=== PATIENT | male | born 1970 | race Two or more races ===

== ENCOUNTER 2019-01-28 14:41 | Inpatient (IN) | payer OTHER ==
[2019-01-28 15:06] VITALS: BMI 21.7
[2019-01-28] MEDS ORDERED: IBUPROFEN 400 MG TABLET (FP) PO PRN (16:47)
[2019-01-28] MEDS ORDERED: MENTHOL/PHENOL 1 EACH UD MM PRN (16:47)
[2019-01-28] MEDS ORDERED: hydrOXYzine PAMOATE 25 MG CAPSULE (FP) PO PRN (16:47)
[2019-01-28] MEDS ORDERED: LOPERAMIDE HCL 2 MG CAPSULE PO PRN (16:47)
[2019-01-28] MEDS ORDERED: ACETAMINOPHEN 325 MG TABLET (FP) PO PRN (16:47)
[2019-01-28] MEDS ORDERED: guaiFENesin 200 MG/10 ML 10 ML UNIT-DOSE CUPS PO PRN (16:47)
[2019-01-28] MEDS ORDERED: P-EPHED 60MG/TRIPROLIDI 2.5MG TABLET PO PRN (16:47)
[2019-01-28] MEDS ORDERED: MAGNESIUM HYDROX 2400MG/30ML ORAL SUSPENSION 30 ML CUP PO PRN (16:47)
[2019-01-28] MEDS ORDERED: MAG HYDROX/AL HYDROX/SIMETH 30 ML UNIT-DOSE CUP PO PRN (16:47)
[2019-01-28] MEDS ORDERED: MAGNESIUM CITRATE 300 ML BOTTLE PO PRN (16:47)
--- NOTE | 2019-01-28 16:47 | HP ---
CIWA Score - Admission Criteria OASAS Guidelines: Admission for Medically Managed Detox: Requires at least one of the followin. CIWA greater than 12 2. Seizures within the past 24 hours 3. Delirium tremens within the past 24 hours 4. Hallucinations within the past 24 hours 5. Acute intervention needed for co occurring medical disorder 6. Acute intervention needed for co occurring psychiatric disorder 7. Severe withdrawal that cannot be handled at a lower level of care (continued vomiting, continued diarrhea, abnormal vital signs) requiring intravenous medication and/or fluids 8. Admission ROS S - HPI Chief Complaint: cocaine rehab Allergies/Adverse Reactions: Allergies Allergy/AdvReac Type Severity Reaction Status Date / Time No Known Allergies Allergy Verified 01/28/19 14:58 History of Present Illness: Patient is a 48 yo male with hx of cocaine and opioid dependence is here seeking inpatient rehabilitation. Patient linked to [facility] on methadone 25 mg last medicated today, dose pending verification, patient reports continues to use opioids intravenous. PMHX: denies. Psych: Denies . Denies SI/HI Exam Limitations: No Limitations - Ebola screening Have you traveled outside of the country in the last 21 days: No Have you had contact with anyone from an Ebola affected area: No - Review of Systems Constitutional: Loss of Appetite, Changes in sleep, Unintentional Wgt. Loss EENT: reports: No Symptoms Reported Respiratory: reports: No Symptoms reported Cardiac: reports: No Symptoms Reported GI: reports: Poor Appetite, Poor Fluid Intake, Indigestion : reports: No Symptoms Reported Musculoskeletal: reports: No Symptoms Reported Integumentary: reports: No Symptoms Reported Neuro: reports: Weakness Endocrine: reports: No Symptoms Reported Hematology: reports: No Symptoms Reported Psychiatric: reports: Orientated x3, Anxious Other Systems: Reviewed and Negative Patient History - Patient Medical History Hx Anemia: No Hx Asthma: No Hx Chronic Obstructive Pulmonary Disease (COPD): No Hx Cancer: No Hx Cardiac Disorders: No Hx Congestive Heart Failure: No Hx Hypertension: No Hx Hypercholesterolemia: No Hx Pacemaker: No HX Cerebrovascular Accident: No Hx Seizures: No Hx Dementia: No Hx Diabetes: No Hx Gastrointestinal Disorders: No Hx Liver Disease: No Hx Genitourinary Disorders: No Hx Sexually Transmitted Disorders: No Hx Renal Disease (ESRD): No Hx Thyroid Disease: No Hx Human Immunodeficiency Virus (HIV): No Hx Hepatitis C: No Hx Depression: No Hx Suicide Attempt: No Hx Bipolar Disorder: No Hx Schizophrenia: No - Patient Surgical History Past Surgical History: No - PPD History Previous Implant?: No Documented Results: Negative w/o proof PPD to be Administered?: No - Smoking Cessation Smoking history: Current every day smoker Have you smoked in the past 12 months: Yes Aproximately how many cigarettes per day: 6 Hx Chewing Tobacco Use: No Initiated information on smoking cessation: Yes 'Breaking Loose' booklet given: 01/28/19 - Substance & Tx. History Hx Alcohol Use: No Hx Substance Use: Yes Substance Use Type: Cocaine, Heroin Hx Substance Use Treatment: Yes ([facility] June 2018) - Substances abused Heroin Substance route: Injection Frequency: Daily Amount used: 4 bags Age of first use: 26 Date of last use: 01/28/19 Cocaine Substance route: Injection Frequency: Daily Amount used: 2 bags Age of first use: 26 Date of last use: 01/28/19 Family Disease History - Family Disease History Family Disease History: Heart Disease: Father (HTN, unknown heart condition ) Admission Physical Exam S - Vital Signs Vital Signs: Vital Signs - 24 hr 01/28/19 15:00 Temperature 98.4 F Pulse Rate 72 Respiratory 18 Rate Blood Pressure 108/69 - Physical General Appearance: Yes: Appropriately Dressed, Thin, Anxious HEENTM: Yes: EOMI, Hearing grossly Normal, Normal ENT Inspection, Normocephalic , Normal Voice, ANTONELLA, Pharynx Normal, Tm's normal Respiratory: Yes: Chest Non-Tender, Lungs Clear, Normal Breath Sounds, No Respiratory Distress, No Accessory Muscle Use Neck: Yes: Within Normal Limits Breast: Yes: Breast Exam Deferred Cardiology: Yes: Regular Rhythm, Regular Rate Abdominal: Yes: Normal Bowel Sounds, Non Tender, Flat, Soft Genitourinary: Yes: Within Normal Limits Back: Yes: Normal Inspection Musculoskeletal: Yes: full range of Motion, Gait Steady, Pelvis Stable Extremities: Yes: Normal Capillary Refill, Normal Inspection, Normal Range of Motion, Non-Tender Neurological: Yes: inside steward/stewardess II-XII NML intact, Fully Oriented, Alert, Motor Strength 5/5, Normal Mood/Affect Integumentary: Yes: Normal Color, Dry, Warm, Track Emmanuel (b/l forearm no cellulitis) Lymphatic: Yes: Within Normal Limits - Diagnostic (1) Cocaine dependence Current Visit: Yes Status: Acute Qualifiers: Substance use status: uncomplicated Qualified Code(s): F14.20 - Cocaine dependence, uncomplicated (2) Opioid dependence on agonist therapy Current Visit: Yes Status: Chronic Comment: methadone 25 mg last medicated today at [facility] (3) Nicotine dependence Current Visit: Yes Status: Acute Qualifiers: Nicotine product type: cigarettes Breathalyzer - Breathalyzer Breathalyzer: 0 Urine Drug Screen - Test Device Lot number: [id number] Expiration date: 10/20/20 - Control Is test valid?: Yes - Results Drug screen NEGATIVE: No Urine drug screen results: JARET-Cocaine, MET-Methamphetamine, FEN-Fentanyl, MOP- Opiates, OXY-Oxycodone, MTD-Methadone Inpatient Rehab Admission - Rehab Decision to Admit Inpatient rehab admission?: Yes - Initial Determination Are CD services needed?: Yes Free of communicable disease: Yes Not in need of hospitalization: Yes - Rehab Admission Criteria Previous failed treatment: Yes Poor recovery environment: Yes Comorbidities: Yes Lacks judgement: Yes Patient is meeting Inpatient Rehab admission criteria:: Yes
[2019-01-28] MEDS: THIAMINE HCL 100 MG TABLET (FP) PO SCH (21:38)
[2019-01-28] MEDS ORDERED: diphenhydrAMINE HCL 50 MG CAPSULE PO ONE (22:00)
[2019-01-28] MEDS ORDERED: MELATONIN 5 MG TABLETS PO PRN (22:00)
--- NOTE | 2019-01-29 06:29 | CONSULT ---
[facility] Psychiatric Consult - Data Date of interview: 01/29/19 Admission source: Self-referred Identifying data: Mr Grayson is a 48 years old single male, father of 4 children, unemployed with no source of income, homeless seeking rehab treatment for opioid and cocaine Substance Abuse History: Reports history of heroin and cocaine use. Refer to addiction counseor's summary for further information Medical History: Unremarkable. Patient is on methadone 25 mg/day from [facility]. Smokes 6 cigarettes daily Psychiatric History: Reports receiving some medication for depression once which he did not take for long. He has no recollection of name of medication and when it was prescribed. Denies previous psychiatric hospitalization or suicidal attempt. At present, reports feeling mildly depressed,anxious and sleeping poorly. Requests to be ordered Trazadone to which he responded well in the past Physical/Sexual Abuse/Trauma History: Denies history of emotional, physical or sexual abuse as well as DV relationship. No service Additional Comment: Reports history of 3 previous arrests including 2 felony convictions on drug charges. Denies being on parole/probation Mental Status Exam - Mental Status Exam Alert and Oriented to: Time, Place, Person Cognitive Function: Fair Patient Appearance: Disheveled Mood: Depressed (mildly), Anxious (mildly) Affect: Appropriate Patient Behavior: Cooperative Speech Pattern: Clear Voice Loudness: Normal Thought Process: Intact Thought Disorder: Not Present Hallucinations: Denies Suicidal Ideation: Denies Homicidal Ideation: Denies Insight/Judgement: Fair Sleep: Poorly Appetite: Poor Muscle strength/Tone: Normal Gait/Station: Normal Psychiatric Findings - Problem List ([place] 1, 2,3) (1) Substance induced mood disorder Current Visit: Yes Status: Acute (2) Substance-induced sleep disorder Current Visit: Yes Status: Acute (3) Cocaine dependence Current Visit: Yes Status: Acute Qualifiers: Substance use status: uncomplicated Qualified Code(s): F14.20 - Cocaine dependence, uncomplicated (4) Opioid dependence on agonist therapy Current Visit: Yes Status: Chronic Comment: methadone 25 mg last medicated today at [facility] (5) Nicotine dependence Current Visit: Yes Status: Chronic Qualifiers: Nicotine product type: cigarettes - Initial Treatment Plan Initial Treatment Plan: 1) Start Trazadone 100 mg po HS. 2) Continue inpatient rehabilitation
[2019-01-29] MEDS ORDERED: METHADONE HCL 10 MG TABLET PO ONE (09:55)
[2019-01-29] MEDS ORDERED: METHADONE 20 MG, METHADONE 5 MG PO ONE (10:25)
[2019-01-29] MEDS ORDERED: METHADONE HCL 10 MG TABLET ONE (11:19)
[2019-01-29] MEDS ORDERED: METHADONE HCL 5 MG TABLET ONE (11:19)
[2019-01-29] MEDS: PRENATAL VITAMINS W/ FOLIC ACID TABLET (FP) PO SCH (11:19)
[2019-01-29] MEDS: NICOTINE 14 MG/24 HOURS TOPICAL PATCH TD SCH (11:24)
[2019-01-29 12:34] LABS: ALBUMIN 3.5 g/dl (3.4-5.0); BILIRUBIN,TOTAL 0.4 mg/dL (0.2-1); BLOOD UREA NITROGEN 15.9 mg/dL (7-18); CALCIUM 8.7 mg/dL (8.5-10.1); CREATININE 0.9 mg/dL (0.55-1.3); POTASSIUM 4.3 mmol/L (3.5-5.1); TOT PROT 6.9 g/dl (6.4-8.2)
[2019-01-29 13:13] LABS: HEMATOCRIT 37.8 % (35.4-49); MCH 22.4 pg (25.7-33.7); MCHC 31.6 g/dl (32.0-35.9); MEAN CELL VOLUME 70.7 fl (80-96); MEAN PLT VOLUME 9.5 fl (7.5-11.1); PLATELET COUNT 174 K/MM3 (134-434); RBC 5.35 M/mm3 (4.00-5.60); WHITE BLOOD COUNT 4.8 K/mm3 (4.0-10.0)
--- NOTE | 2019-01-29 13:47 | EKG ---
Test Reason : Blood Pressure : / mmHG Vent. Rate : 048 BPM Atrial Rate : 048 BPM P-R Int : 158 ms QRS Dur : 090 ms QT Int : 442 ms P-R-T Axes : 056 014 043 degrees QTc Int : 394 ms SINUS BRADYCARDIA LEFT ATRIAL ENLARGEMENT NO PREVIOUS ECGS AVAILABLE Confirmed by AUSTIN MITCHELL MD ([id number]) on 01/29/2019 1:46:47 PM Referred By: Confirmed By:AUSTIN MITCHELL MD
--- NOTE | 2019-01-29 14:58 | PN ---
[facility] Progress Note Note: Pt is a 48 y/o male admitted from [facility] on 01/28/19 to rehab for hx cocaine and opioid dependence. Pt is connected to [facility] on methadone 25 mg po daily. Pt denies PMHX and PSychHX. Pt is not on any home meds. pt was seen today and he c/o nause and vomitting this morning. Also reports constipation x 2 days. Reports upper abdominal pain-epigastric area. Pt reports has taken zantac for stomach complaints in the past. Reports slight right lower molar toothache. Vital Signs - 24 hr 01/28/19 01/28/19 01/29/19 15:00 18:08 00:30 Temperature 98.4 F 98.0 F Pulse Rate 72 47 L Respiratory 18 16 18 Rate Blood Pressure 108/69 97/65 01/29/19 01/29/19 03:30 07:27 Temperature Pulse Rate 58 L Respiratory 18 18 Rate Blood Pressure 121/74 Laboratory Tests 01/29/19 01/29/19 01/29/19 08:35 08:35 08:35 WBC 4.8 RBC 5.35 Hgb 12.0 Hct 37.8 MCV 70.7 L MCH 22.4 L MCHC 31.6 L RDW 15.0 Plt Count 174 MPV 9.5 Sodium 142 Potassium 4.3 Chloride 107 Carbon Dioxide 28 Anion Gap 7 L BUN 15.9 Creatinine 0.9 Est GFR (CKD-EPI)AfAm 116.65 Est GFR (CKD-EPI)NonAf 100.64 Random Glucose 77 Calcium 8.7 Total Bilirubin 0.4 AST 21 ALT 35 Alkaline Phosphatase 80 Total Protein 6.9 Albumin 3.5 RPR Titer Nonreactive general:A Well developed, tall male. Heent:Normocephalic; eomi,maureen, dental decay Neck:supple, no JVD,FROM Heart:s1 s2 rrr Lungs:cta, paulina. Abdomen:soft,+bs,nd, slightly tender to palpate egigastric region. Extremities:no e/c/c Neuro:Alert o x 3. cr ii -xii intact. A:N/V GERD CONSTIPATION Plan:zofran 8 mg sl q8h prn for n/v MOM prn, Citrate mg, if not effective Colace 100 mg po tid zantac 150 mg po bid viscous lidocaine prn as directed.
[2019-01-29] MEDS ORDERED: ONDANSETRON *ODT* 4 MG TABLET SL PRN (15:12)
[2019-01-29] MEDS ORDERED: LIDOCAINE VISCOUS 2% ORAL/TOP 20 ML UNIT-DOSE CUP MM PRN (16:12)
[2019-01-29] MEDS: THIAMINE HCL 100 MG TABLET (FP) PO SCH (21:54)
[2019-01-29] MEDS: traZODone HCL 100 MG TABLET (FP) PO SCH (21:54)
[2019-01-29] MEDS: RANITIDINE HCL 150 MG TABLET (FP) PO SCH (21:54)
[2019-01-29] MEDS: DOCUSATE SODIUM 100 MG CAPSULE (FP) PO SCH (21:55)
[2019-01-30] MEDS ORDERED: METHADONE HCL 10 MG TABLET PO SCH (06:00)
[2019-01-30] MEDS ORDERED: METHADONE HCL 10 MG TABLET ONE (06:07)
[2019-01-30] MEDS ORDERED: METHADONE HCL 5 MG TABLET ONE (06:07)
[2019-01-30] MEDS: DOCUSATE SODIUM 100 MG CAPSULE (FP) PO SCH ×3 (07:00→21:40)
[2019-01-30] MEDS: METHADONE 20 MG, METHADONE 5 MG PO SCH (07:14)
[2019-01-30] MEDS: RANITIDINE HCL 150 MG TABLET (FP) PO SCH ×2 (11:00→21:40)
[2019-01-30] MEDS: NICOTINE 14 MG/24 HOURS TOPICAL PATCH TD SCH (11:00)
[2019-01-30] MEDS: PRENATAL VITAMINS W/ FOLIC ACID TABLET (FP) PO SCH (11:00)
[2019-01-30] MEDS: NICOTINE POLACRILEX 2 MG GUM BC PRN (11:01)
[2019-01-30] MEDS: THIAMINE HCL 100 MG TABLET (FP) PO SCH (21:40)
[2019-01-30] MEDS: traZODone HCL 100 MG TABLET (FP) PO SCH (21:40)
[2019-01-31] MEDS ORDERED: METHADONE HCL 5 MG TABLET ONE (05:50)
[2019-01-31] MEDS ORDERED: METHADONE HCL 10 MG TABLET ONE (05:51)
[2019-01-31] MEDS: METHADONE 20 MG, METHADONE 5 MG PO SCH (06:53)
[2019-01-31] MEDS: DOCUSATE SODIUM 100 MG CAPSULE (FP) PO SCH ×3 (06:53→21:36)
[2019-01-31] MEDS: PRENATAL VITAMINS W/ FOLIC ACID TABLET (FP) PO SCH (09:58)
[2019-01-31] MEDS: RANITIDINE HCL 150 MG TABLET (FP) PO SCH ×2 (09:58→21:36)
[2019-01-31] MEDS: NICOTINE 14 MG/24 HOURS TOPICAL PATCH TD SCH (09:58)
[2019-01-31] MEDS: THIAMINE HCL 100 MG TABLET (FP) PO SCH (21:35)
[2019-01-31] MEDS: traZODone HCL 100 MG TABLET (FP) PO SCH (21:36)
[2019-02-01] MEDS ORDERED: METHADONE HCL 5 MG TABLET ONE (02:58)
[2019-02-01] MEDS ORDERED: METHADONE HCL 10 MG TABLET ONE (02:59)
[2019-02-01] MEDS: METHADONE 20 MG, METHADONE 5 MG PO SCH (06:35)
[2019-02-01] MEDS: DOCUSATE SODIUM 100 MG CAPSULE (FP) PO SCH ×3 (07:03→21:43)
[2019-02-01] MEDS: PRENATAL VITAMINS W/ FOLIC ACID TABLET (FP) PO SCH (10:22)
[2019-02-01] MEDS: RANITIDINE HCL 150 MG TABLET (FP) PO SCH ×2 (10:22→21:44)
[2019-02-01] MEDS: NICOTINE 14 MG/24 HOURS TOPICAL PATCH TD SCH (10:23)
[2019-02-01] MEDS: NICOTINE POLACRILEX 2 MG GUM BC PRN (10:24)
[2019-02-01] MEDS: THIAMINE HCL 100 MG TABLET (FP) PO SCH (21:43)
[2019-02-01] MEDS: traZODone HCL 100 MG TABLET (FP) PO SCH (21:44)
[2019-02-02] MEDS ORDERED: METHADONE HCL 5 MG TABLET ONE (05:48)
[2019-02-02] MEDS ORDERED: METHADONE HCL 10 MG TABLET ONE (05:48)
[2019-02-02] MEDS: DOCUSATE SODIUM 100 MG CAPSULE (FP) PO SCH ×3 (06:48→21:51)
[2019-02-02] MEDS: METHADONE 20 MG, METHADONE 5 MG PO SCH (06:48)
[2019-02-02] MEDS: RANITIDINE HCL 150 MG TABLET (FP) PO SCH ×2 (10:27→21:51)
[2019-02-02] MEDS: PRENATAL VITAMINS W/ FOLIC ACID TABLET (FP) PO SCH (10:27)
[2019-02-02] MEDS: NICOTINE 14 MG/24 HOURS TOPICAL PATCH TD SCH (10:27)
[2019-02-02] MEDS: NICOTINE POLACRILEX 2 MG GUM BC PRN (10:28)
[2019-02-02 15:36] LABS: URINE APPEARANCE CLEAR; URINE BILIRUBIN NEGATIVE (NEGATIVE); URINE COLOR YELLOW; URINE GLUCOSE (UA) NEGATIVE (NEGATIVE); URINE KETONE NEGATIVE (NEGATIVE); URINE LEUK ESTERASE NEGATIVE (NEGATIVE); URINE NITRITE NEGATIVE (NEGATIVE); URINE PROTEIN NEGATIVE (NEGATIVE); URINE UROBILINOGEN 0.2 mg/dL (0.2-1.0)
[2019-02-02] MEDS: traZODone HCL 100 MG TABLET (FP) PO SCH (21:51)
[2019-02-02] MEDS: THIAMINE HCL 100 MG TABLET (FP) PO SCH (21:52)
[2019-02-03] MEDS ORDERED: METHADONE HCL 5 MG TABLET ONE (05:13)
[2019-02-03] MEDS ORDERED: METHADONE HCL 10 MG TABLET ONE (05:14)
[2019-02-03] MEDS: METHADONE 20 MG, METHADONE 5 MG PO SCH (06:34)
[2019-02-03] MEDS: DOCUSATE SODIUM 100 MG CAPSULE (FP) PO SCH ×3 (06:34→21:41)
[2019-02-03] MEDS: NICOTINE POLACRILEX 2 MG GUM BC PRN (10:28)
[2019-02-03] MEDS: PRENATAL VITAMINS W/ FOLIC ACID TABLET (FP) PO SCH (10:28)
[2019-02-03] MEDS: RANITIDINE HCL 150 MG TABLET (FP) PO SCH ×2 (10:28→21:40)
[2019-02-03] MEDS: NICOTINE 14 MG/24 HOURS TOPICAL PATCH TD SCH (10:29)
[2019-02-03] MEDS: traZODone HCL 100 MG TABLET (FP) PO SCH (21:40)
[2019-02-03] MEDS: THIAMINE HCL 100 MG TABLET (FP) PO SCH (21:40)
[2019-02-04] MEDS ORDERED: METHADONE HCL 5 MG TABLET ONE (05:49)
[2019-02-04] MEDS ORDERED: METHADONE HCL 10 MG TABLET ONE (05:50)
[2019-02-04] MEDS: METHADONE 20 MG, METHADONE 5 MG PO SCH (06:04)
[2019-02-04] MEDS: DOCUSATE SODIUM 100 MG CAPSULE (FP) PO SCH ×3 (06:05→21:34)
[2019-02-04] MEDS: RANITIDINE HCL 150 MG TABLET (FP) PO SCH ×2 (10:01→21:34)
[2019-02-04] MEDS: PRENATAL VITAMINS W/ FOLIC ACID TABLET (FP) PO SCH (10:01)
[2019-02-04] MEDS: NICOTINE POLACRILEX 2 MG GUM BC PRN ×2 (10:01→21:34)
[2019-02-04] MEDS: NICOTINE 14 MG/24 HOURS TOPICAL PATCH TD SCH (10:02)
[2019-02-04] MEDS: traZODone HCL 100 MG TABLET (FP) PO SCH (21:34)
[2019-02-04] MEDS: THIAMINE HCL 100 MG TABLET (FP) PO SCH (21:34)
[2019-02-05] MEDS: METHADONE 20 MG, METHADONE 5 MG PO SCH (06:01)
[2019-02-05] MEDS: DOCUSATE SODIUM 100 MG CAPSULE (FP) PO SCH ×3 (06:02→21:29)
[2019-02-05] MEDS ORDERED: METHADONE HCL 10 MG TABLET ONE (06:03)
[2019-02-05] MEDS ORDERED: METHADONE HCL 5 MG TABLET ONE (06:03)
[2019-02-05] MEDS: PRENATAL VITAMINS W/ FOLIC ACID TABLET (FP) PO SCH (10:34)
[2019-02-05] MEDS: RANITIDINE HCL 150 MG TABLET (FP) PO SCH ×2 (10:34→21:29)
[2019-02-05] MEDS: NICOTINE 14 MG/24 HOURS TOPICAL PATCH TD SCH (10:35)
[2019-02-05] MEDS: NICOTINE POLACRILEX 2 MG GUM BC PRN ×2 (10:35→21:29)
[2019-02-05] MEDS: THIAMINE HCL 100 MG TABLET (FP) PO SCH (21:29)
[2019-02-05] MEDS: traZODone HCL 100 MG TABLET (FP) PO SCH (21:29)
[2019-02-06] MEDS ORDERED: METHADONE HCL 10 MG TABLET ONE (06:47)
[2019-02-06] MEDS ORDERED: METHADONE HCL 5 MG TABLET ONE (06:47)
[2019-02-06] MEDS: DOCUSATE SODIUM 100 MG CAPSULE (FP) PO SCH ×3 (06:48→21:54)
[2019-02-06] MEDS: METHADONE 20 MG, METHADONE 5 MG PO SCH (06:48)
[2019-02-06] MEDS: RANITIDINE HCL 150 MG TABLET (FP) PO SCH ×2 (09:57→21:54)
[2019-02-06] MEDS: NICOTINE 14 MG/24 HOURS TOPICAL PATCH TD SCH (09:57)
[2019-02-06] MEDS: PRENATAL VITAMINS W/ FOLIC ACID TABLET (FP) PO SCH (09:57)
[2019-02-06] MEDS: NICOTINE POLACRILEX 2 MG GUM BC PRN (09:59)
[2019-02-06] MEDS: THIAMINE HCL 100 MG TABLET (FP) PO SCH (21:54)
[2019-02-06] MEDS: traZODone HCL 100 MG TABLET (FP) PO SCH (21:54)
[2019-02-07] MEDS ORDERED: METHADONE HCL 5 MG TABLET ONE (03:57)
[2019-02-07] MEDS ORDERED: METHADONE HCL 10 MG TABLET ONE (03:57)
[2019-02-07] MEDS: METHADONE 20 MG, METHADONE 5 MG PO SCH (06:15)
[2019-02-07] MEDS: DOCUSATE SODIUM 100 MG CAPSULE (FP) PO SCH ×3 (06:16→22:11)
[2019-02-07] MEDS: PRENATAL VITAMINS W/ FOLIC ACID TABLET (FP) PO SCH (10:51)
[2019-02-07] MEDS: NICOTINE POLACRILEX 2 MG GUM BC PRN (10:51)
[2019-02-07] MEDS: RANITIDINE HCL 150 MG TABLET (FP) PO SCH ×2 (10:51→22:10)
[2019-02-07] MEDS: NICOTINE 14 MG/24 HOURS TOPICAL PATCH TD SCH (10:51)
[2019-02-07] MEDS: THIAMINE HCL 100 MG TABLET (FP) PO SCH (22:10)
[2019-02-07] MEDS: traZODone HCL 100 MG TABLET (FP) PO SCH (22:10)
[2019-02-08] MEDS ORDERED: METHADONE HCL 5 MG TABLET ONE (05:42)
[2019-02-08] MEDS ORDERED: METHADONE HCL 10 MG TABLET ONE (05:43)
[2019-02-08] MEDS: METHADONE 20 MG, METHADONE 5 MG PO SCH (06:34)
[2019-02-08] MEDS: DOCUSATE SODIUM 100 MG CAPSULE (FP) PO SCH ×2 (06:35→15:20)
[2019-02-08] MEDS: PRENATAL VITAMINS W/ FOLIC ACID TABLET (FP) PO SCH (10:19)
[2019-02-08] MEDS: NICOTINE 14 MG/24 HOURS TOPICAL PATCH TD SCH (10:20)
[2019-02-08] MEDS: RANITIDINE HCL 150 MG TABLET (FP) PO SCH ×2 (12:25→21:43)
[2019-02-08] MEDS: THIAMINE HCL 100 MG TABLET (FP) PO SCH (21:43)
[2019-02-08] MEDS: traZODone HCL 100 MG TABLET (FP) PO SCH (21:44)
[2019-02-09] MEDS ORDERED: METHADONE HCL 5 MG TABLET ONE (03:53)
[2019-02-09] MEDS ORDERED: METHADONE HCL 10 MG TABLET ONE (03:53)
[2019-02-09] MEDS: METHADONE 20 MG, METHADONE 5 MG PO SCH (06:44)
--- NOTE | 2019-02-09 09:48 | PN ---
Psychiatric Progress Note Vital Signs: Vital Signs Period Temp Pulse Resp BP Sys/Cardenas Pulse Ox Last 24 Hr 97.5 F 59 18-18 113/72 Date of Session: 02/09/19 Chief Complaint:: " I'm not sleeping all night." HPI: Patient admitted to for cocaine and opioid dependence. Patient reports difficulty sleeping throughout the night. ROS: Patient is coherent, alert and oriented X3. Current Medications: Active Medications Generic Name Dose Route Start Last Admin Trade Name Freq PRN Reason Stop Dose Admin Acetaminophen 650 mg 01/28/19 16:47 02/08/19 10:18 Tylenol - PO 650 mg Q4H PRN Administration FEVER Al Hydroxide/Mg Hydroxide 30 ml 01/28/19 16:47 Mylanta Oral Suspension - PO Q6H PRN DYSPEPSIA Docusate Sodium 100 mg 02/09/19 10:00 Colace - PO DAILY CORRINA Eucalyptus/Menthol/Phenol/Sorbitol 1 each 01/28/19 16:47 Cepastat Lozenge - MM Q4H PRN SORE THROAT Guaifenesin 10 ml 01/28/19 16:47 Robitussin - PO Q6H PRN COUGH Hydroxyzine Pamoate 25 mg 01/28/19 16:47 Vistaril - PO Q4H PRN AGITATION Ibuprofen 400 mg 01/28/19 16:47 Motrin - PO Q6H PRN Pain level 4-6 Lidocaine HCl 20 ml 01/29/19 16:12 Xylocaine 2% Viscous Oral - MM TID PRN ORAL PAIN/MOUTH SORES Loperamide HCl 4 mg 01/28/19 16:47 Imodium - PO Q6H PRN DIARRHEA Magnesium Citrate 300 ml 01/28/19 16:47 Citroma - PO Q48H PRN CONSTIPATION Magnesium Hydroxide 30 ml 01/28/19 16:47 Milk Of Magnesia - PO DAILY PRN CONSTIPATION Methadone HCl 20 mg/ Methadone 25 mg 01/30/19 06:00 02/09/19 06:44 HCl 5 mg PO 02/12/19 07:05 25 mg DAILY@0600 CORRINA Administration Nicotine 14 mg 01/29/19 10:00 02/08/19 10:20 Nicoderm Patch - TD Not Given DAILY CORRINA Nicotine Polacrilex 2 mg 01/28/19 16:47 02/07/19 10:51 Nicorette Gum - BC 2 mg Q2H PRN Administration NICOTINE REPLACEMENT RX Ondansetron HCl 8 mg 01/29/19 15:12 01/29/19 15:35 Zofran Odt - SL 8 mg Q8H PRN Administration NAUSEA AND/OR VOMITING Multivit/Folic Acid/Iron 1 tab 01/29/19 10:00 02/08/19 10:19 Vitamins (Sjr) - PO 1 tab DAILY CORRINA Administration Pseudoephedrine/Triprolidine 1 combo 01/28/19 16:47 Actifed - PO TID PRN NASAL CONGESTION Ranitidine HCl 150 mg 01/29/19 22:00 02/08/19 21:43 Zantac - PO 150 mg BID CORRINA Administration Thiamine HCl 100 mg 01/28/19 22:00 02/08/19 21:43 Vitamin B1 - PO 100 mg HS CORRINA Administration Trazodone HCl 100 mg 01/29/19 22:00 02/08/19 21:44 Desyrel - PO 100 mg HS CORRINA Administration Medication(s) Change(s): Yes. Current Side Effect: No Lab tests ordered: No Lab tests reviewed: Yes Provider note:: Patient reports difficulty sleeping through the night. States trazodone 100mg was effective the first several nights but now he is sleeping several hours before awaking in the middle of the night. Patient refusing to accept an increase in trazodone as he does not want to feel oversedated. Will order Melatonin 5mg HS. Patient educated on the importance of proper sleep hygiene. Benefits and side effects discussed. Verbal consent given. Total face to face time:: 25 Mental Status Exam - Mental Status Exam Alert and Oriented to: Time, Place, Person Cognitive Function: Good Patient Appearance: Well Groomed Mood: Euthymic Affect: Mood Congruent Patient Behavior: Cooperative Speech Pattern: Appropriate Voice Loudness: Normal Thought Process: Intact, Goal Oriented Thought Disorder: Not Present Hallucinations: Denies Suicidal Ideation: Denies Homicidal Ideation: Denies Insight/Judgement: Poor Sleep: Poorly Appetite: Fair Muscle strength/Tone: Normal Gait/Station: Normal Psychiatric Treatment Plan - Problem List (1) Cocaine dependence Current Visit: Yes Qualifiers: Substance use status: uncomplicated Qualified Code(s): F14.20 - Cocaine dependence, uncomplicated (2) Substance induced mood disorder Current Visit: Yes (3) Substance-induced sleep disorder Current Visit: Yes (4) Nicotine dependence Current Visit: Yes Qualifiers: Nicotine product type: cigarettes (5) Opioid dependence on agonist therapy Current Visit: Yes Comment: methadone 25 mg last medicated today at [facility]
[2019-02-09] MEDS: DOCUSATE SODIUM 100 MG CAPSULE (FP) PO SCH (10:58)
[2019-02-09] MEDS: PRENATAL VITAMINS W/ FOLIC ACID TABLET (FP) PO SCH (10:58)
[2019-02-09] MEDS: NICOTINE 14 MG/24 HOURS TOPICAL PATCH TD SCH (10:58)
[2019-02-09] MEDS: RANITIDINE HCL 150 MG TABLET (FP) PO SCH ×2 (10:58→21:33)
--- NOTE | 2019-02-09 14:13 | PN ---
S Progress Note Note: Patient is scheduled for discharge tomorrow. Script for 30 days supply of Trazadone 100 mg/hs will be electronically transmitted to [facility] at [facility] [address] [place], [place] [id number]
[2019-02-09] MEDS: traZODone HCL 100 MG TABLET (FP) PO SCH (21:33)
[2019-02-09] MEDS: THIAMINE HCL 100 MG TABLET (FP) PO SCH (21:33)
[2019-02-09] MEDS ORDERED: MELATONIN 5 MG TABLETS PO PRN (22:00)
[2019-02-10] MEDS ORDERED: METHADONE HCL 10 MG TABLET ONE (04:16)
[2019-02-10] MEDS ORDERED: METHADONE HCL 5 MG TABLET ONE (04:16)
[2019-02-10 07:06] VITALS: BP 129/74; PULSE 64; TEMP 97.7
[2019-02-10] MEDS: METHADONE 20 MG, METHADONE 5 MG PO SCH (07:13)
--- NOTE | 2019-02-10 09:40 | DS ---
[facility] Rehab Discharge Summary - [facility] Rehab Discharge Summary Admission Date: 01/28/19 Discharge Date: 02/10/19 - History Present History: Cocaine dependence, [facility] ([facility] [address], [place]) Additional Comments: Pcompleted rehab and discharged as scheduled today. Pt has primary care provider Dr. Sims in [facility]. Referred to [facility] for CD aftercare. Pertinent Past History: Denies PMHx Chronic Insomnia mood disorder - Discharge Physical Exam Vital Signs: Vital Signs Temperature 97.7 F 02/10/19 07:06 Pulse Rate 64 02/10/19 07:06 Respiratory Rate 18 02/10/19 07:06 Blood Pressure 129/74 02/10/19 07:06 O2 Sat by Pulse Oximetry (%) Pertinent Admission Physical Exam Findings: Vital Signs 02/10/19 02/10/19 03:30 07:06 Temperature 97.7 F Pulse Rate 64 Respiratory 18 18 Rate Blood Pressure 129/74 Laboratory Tests 01/29/19 01/29/19 01/29/19 08:35 08:35 08:35 WBC 4.8 RBC 5.35 Hgb 12.0 Hct 37.8 MCV 70.7 L MCH 22.4 L MCHC 31.6 L RDW 15.0 Plt Count 174 MPV 9.5 Sodium 142 Potassium 4.3 Chloride 107 Carbon Dioxide 28 Anion Gap 7 L BUN 15.9 Creatinine 0.9 Est GFR (CKD-EPI)AfAm 116.65 Est GFR (CKD-EPI)NonAf 100.64 Random Glucose 77 Calcium 8.7 Total Bilirubin 0.4 AST 21 ALT 35 Alkaline Phosphatase 80 Total Protein 6.9 Albumin 3.5 Urine Color Urine Appearance Urine pH Ur Specific [place] Urine Protein Urine Glucose (UA) Urine Ketones Urine Blood Urine Nitrite Urine Bilirubin Urine Urobilinogen Ur Leukocyte Esterase RPR Titer Nonreactive 02/02/19 12:00 WBC RBC Hgb Hct MCV MCH MCHC RDW Plt Count MPV Sodium Potassium Chloride Carbon Dioxide Anion Gap BUN Creatinine Est GFR (CKD-EPI)AfAm Est GFR (CKD-EPI)NonAf Random Glucose Calcium Total Bilirubin AST ALT Alkaline Phosphatase Total Protein Albumin Urine Color Yellow Urine Appearance Clear Urine pH 5.0 Ur Specific [place] 1.025 Urine Protein Negative Urine Glucose (UA) Negative Urine Ketones Negative Urine Blood Negative Urine Nitrite Negative Urine Bilirubin Negative Urine Urobilinogen 0.2 Ur Leukocyte Esterase Negative RPR Titer D/C limited exam: General:Alert o x 3, NAD,Well developed male,lean stature. Cardiac:s1 s2, rrr Lungs:cta,paulina. no sob Abdomen:Soft,+bs,nt,flat Extremities/Skin:No edema, no cyanosis,full ROM all limbs. - Treatment Discharge Condition: Discharge condition good Hospital Course: Responded well and rehabilitated safely. - Medication Discharge Medications: Ambulatory Orders traZODone HCL [Desyrel -] 100 mg PO HS #30 tablet 02/09/19 - Medication-Assisted Treatment (MAT) Medication-Assisted Treatment (MAT): No - Discharge Instructions Diet, activity, other medical instructions: Diet:Regular Activity: as tolerated Other medical instructions:follow up with pcp for medical management as needed. - Diagnosis (1) Opioid dependence Current Visit: Yes Status: Chronic Qualifiers: Substance use status: uncomplicated Qualified Code(s): F11.20 - Opioid dependence, uncomplicated (2) Cocaine dependence Current Visit: Yes Status: Chronic Qualifiers: Substance use status: uncomplicated Qualified Code(s): F14.20 - Cocaine dependence, uncomplicated (3) Opioid dependence on agonist therapy Current Visit: Yes Status: Chronic - AMA Did Patient Leave Against Medical Advice: No Additional Comments: Pt to follow up at existing [facility]
[2019-02-10] MEDS: RANITIDINE HCL 150 MG TABLET (FP) PO SCH (10:15)
[2019-02-10] MEDS: PRENATAL VITAMINS W/ FOLIC ACID TABLET (FP) PO SCH (10:15)
[2019-02-10] MEDS: DOCUSATE SODIUM 100 MG CAPSULE (FP) PO SCH (10:16)
[2019-02-10] MEDS: NICOTINE 14 MG/24 HOURS TOPICAL PATCH TD SCH (10:16)
== END 2019-02-10 11:15 | disposition home or self-care (01) | DRG 772 ==
LOC: YASAS 14:41 → Y5N 17:01
PROVIDERS: ADMIT Surgery; ATTEND Neuromusculoskeletal Medicine & OMM
PROC: HZ42ZZZ Group Counseling for Substance Abuse Treatment, Cognitive-Behavioral (ICD-10-PCS; principal; 2019-01-28)
DX: F11.20 Opioid dependence, uncomplicated (principal); F14.20 Cocaine dependence, uncomplicated; F17.210 Nicotine dependence, cigarettes, uncomplicated; F19.24 Other psychoactive substance dependence with psychoactive substance-induced mood disorder; F19.282 Other psychoactive substance dependence with psychoactive substance-induced sleep disorder; K21.9 Gastro-esophageal reflux disease without esophagitis; K59.00 Constipation, unspecified; K02.9 Dental caries, unspecified
CPT/HCPCS: 36415; 80053; 81003; 85027; 86593; 93005; 93010; Q0162